=== PATIENT | female | born 1950 | race Caucasian/White ===

== ENCOUNTER 2017-10-18 14:23 | Inpatient (IN) | payer MEDICAID, OTHER ==
[2017-10-18] MEDS ORDERED: Albuterol-Ipratrop 3 mg / 0.5 (3 ml) UD IH STA ×3 (16:05→19:31)
--- NOTE | 2017-10-18 16:11 | ED PDOC ---
Arrival/HPI - General Chief Complaint: Cough, Cold, Congestion Time Seen by Provider: 10/18/17 15:55 Historian: Patient, Family - History of Present Illness Narrative History of Present Illness (Text): 10/18/17 16:07 67-year-old diabetic female presents today with a one-day history of cough and shortness of breath. Patient also complaining of a 3 month history of left arm pain which has worsened over the past few days. Patient states she has been taking daily injections for her sugars at home. Patient states her sugar was in the 200s today. Patient complaining of productive cough and wheezing. Patient denies abdominal pain. No nausea or vomiting. Patient denies neck or back pain. Patient with a history of asthma in the past. Patient complaining of chest pain worse with cough. + green sputum. Time/Duration: Other (1 day) Past Medical History - Provider Review Nursing Documentation Reviewed: Yes - Travel History Have you recently traveled outside [place] w/in the past 3 mons?: No - Tetanus Immunization Tetanus Immunization: Unknown - Cardiac Hx Cardiac Disorders: No - Pulmonary Hx Respiratory Disorders: No - Neurological Hx Neurological Disorder: No - HEENT Hx HEENT Disorder: No - Renal Hx Renal Disorder: No - Endocrine/Metabolic Hx Endocrine Disorders: Yes Hx Diabetes Mellitus Type 2: Yes - Hematological/Oncological Hx Blood Disorders: No - Integumentary Hx Dermatological Disorder: No - Musculoskeletal/Rheumatological Hx Musculoskeletal Disorders: No - Gastrointestinal Hx Gastrointestinal Disorders: No - Genitourinary/Gynecological Hx Genitourinary Disorders: No - Psychiatric Hx Psychophysiologic Disorder: No Hx Substance Use: No Family/Social History - Physician Review Nursing Documentation Reviewed: Yes Family/Social History: Unknown Family HX Smoking Status: Never Smoked Hx Alcohol Use: No Hx Substance Use: No Allergies/Home Meds Allergies/Adverse Reactions: Allergies No Known Allergies Allergy (Verified 10/18/17 15:43) Home Medications: Home Meds Medication Instructions Recorded Confirmed Insulin Aspart, Recombinant 36 unit SC DAILY 10/18/17 10/18/17 [Novolog] Insulin Glargine, Recombina 22 unit SC DAILY 10/18/17 10/18/17 [Lantus] Metformin HCl [Glucophage] 1,000 mg PO TID 10/18/17 10/18/17 Review of Systems - Review of Systems Constitutional: Fevers. absent: Fatigue Respiratory: SOB, Cough, Wheezing Cardiovascular: Chest Pain Gastrointestinal: absent: Abdominal Pain, Nausea, Vomiting, Appetite Changes Genitourinary Female: absent: Dysuria, Frequency, Hematuria Musculoskeletal: Arthralgias (left arm pain) Neurological: absent: Headache, Dizziness Psychiatric: absent: Anxiety, Depression Physical Exam Vital Signs Reviewed: Yes Vital Signs Temp Pulse Resp BP Pulse Ox 10/18/17 23:32 98.8 F 108 H 18 120/70 94 L 10/18/17 22:12 100 H 18 150/84 95 10/18/17 22:09 98.6 F 104 H 18 95 10/18/17 20:00 102 H 18 153/87 H 96 10/18/17 18:20 96 H 18 137/76 100 10/18/17 15:55 98.1 F 94 H 16 127/74 99 Temperature: Afebrile Blood Pressure: Normal Pulse: Regular Respiratory Rate: Normal Appearance: Positive for: Well-Appearing, Non-Toxic, Comfortable Pain Distress: None Mental Status: Positive for: Alert and Oriented X 3 - Systems Exam Head: Present: Atraumatic Mouth: Present: Moist Mucous Membranes Pharnyx: Present: Normal. No: ERYTHEMA, EXUDATE Nose (Internal): Present: Normal Inspection Neck: Present: Normal Range of Motion, Trachea Midline. No: Lymphadenopathy Respiratory/Chest: Present: Good Air Exchange, Wheezes (diffuse wheezing bilaterally.). No: Clear to Auscultation, Respiratory Distress, Accessory Muscle Use, Rales, Retracting, Rhonchi Cardiovascular: Present: Tachycardic. No: Murmurs Abdomen: No: Tenderness Upper Extremity: Present: NORMAL PULSES, Tenderness (left shoulder; + ttp over posterior aspect of shoulder; limited abduction; sensation and distal pulses intact; cap refill <2. ), Neurovascularly Intact, Capillary Refill < 2s. No: Normal ROM, Swelling, Erythema, Deformity Lower Extremity: Present: Normal Inspection, Normal ROM. No: Edema Neurological: Present: GCS=15, Speech Normal Skin: Present: Warm, Dry, Normal Color. No: Rashes Psychiatric: Present: Alert, Oriented x 3 Medical Decision Making ED Course and Treatment: 10/18/17 16:11 67yr old female with cough and SOb since yesterday. hx of asthma. cbc wnl cmp wnl trop wnl bnp wnl ekg; normal sinus rhythm at 97 bpm normal axis normal intervals no ST elevations cxr: FINDINGS: LUNGS: No active pulmonary disease. PLEURA: No significant pleural effusion identified, no pneumothorax apparent. CARDIOVASCULAR: Heart is enlarged. Aorta is slightly ectatic and uncoiled. OSSEOUS STRUCTURES: Mild multilevel degenerative spondylosis of the thoracic spine. VISUALIZED UPPER ABDOMEN: Normal. OTHER FINDINGS: Incidental note made of a metallic pain like density which overlies the left aspect of the base of the neck. This is probably external on some clothing artifact however Clinical correlation with direct visualization physical exam recommended IMPRESSION: Cardiomegaly. No acute infiltrates. [place] of a metallic pain like density which overlies the left aspect of the base of the neck. This is probably external on some clothing artifact however Clinical correlation with direct visualization physical exam recommended ua; wnl left shoulder xray; no fracture 10/18/17 22:43 pt given 3 duoneb treatment, solumedrol pt with continued wheezing; o2 saturation 94%. peak flow 150. magnesium added. rapid flu; negative case discussed with dr. hester; accepts observational status admission for cough/ asthma; ct of chest r/o PE: FINDINGS: Limitations: Suboptimal timing of bolus. Motion artifact - mild to moderate. Pulmonary arteries: Few apparent filling defects within subsegmental branches. No saddle embolus. Aorta: Mild atherosclerotic disease of aorta. No aneurysm. Lungs: Mild atelectasis/scarring. No consolidation. Few nodules, up to 0.4 cm. Pleural space: No significant effusion. No pneumothorax. Heart: Borderline cardiomegaly. No significant pericardial effusion. Mediastinum: Probable small hiatal hernia. Bones/joints: Degenerative changes of spine. No acute fracture. Soft tissues: Unremarkable. Lymph nodes: No pathologically enlarged lymph nodes. Liver: Fatty infiltration. Small calcification. Spleen: Small calcification. IMPRESSION: 1. Apparent pulmonary emboli. 2. Pulmonary nodules. For low-risk patients, no follow-up is necessary. For high -risk patients (smoking history or other known risk factors) an optional CT at 12 months could be performed. 3. Incidental/non-acute findings are described above. Dr. hester and resident aware of CT findings; heparin started. impression; PE, cough, asthma exacerbation admit to tele. - Lab Interpretations Lab Results: 10/18/17 17:00 10/18/17 17:00 Lab Results 10/18/17 21:45: Influenza Typ A,B (EIA) Negative for flu a/b 10/18/17 17:25: Urine Color Yellow, Urine Appearance Clear, Urine pH 6.0, Ur Specific [place] 1.020, Urine Protein Trace H, Urine Glucose (UA) >=1000, Urine Ketones 15 H, Urine Blood Negative, Urine Nitrate Negative, Urine Bilirubin Negative, Urine Urobilinogen 0.2, Ur Leukocyte Esterase Negative, Urine RBC Negative, Urine WBC Negative, Ur Epithelial Cells 0 - 2 10/18/17 17:00: WBC 10.1, RBC 4.56, Hgb 13.8, Hct 40.5, MCV 88.8, MCH 30.3, MCHC 34.1, RDW 12.4, Plt Count 254, MPV 9.1, Gran % 52.9, Lymph % (Auto) 36.8 H , [place] % (Auto) 7.4 H, Eos % (Auto) 2.7, Baso % (Auto) 0.2, Gran # 5.37, Lymph # (Auto) 3.7 H, [place] # (Auto) 0.8 H, Eos # (Auto) 0.3, Baso # (Auto) 0.02 10/18/17 17:00: Sodium 141, Potassium 4.0, Chloride 100, Carbon Dioxide 25, Anion Gap 20, BUN 17, Creatinine 0.7, Est GFR ( Amer) > 60, Est GFR (Non- Af Amer) > 60, Random Glucose 229 H, Calcium 9.7, Total Bilirubin 0.2, AST 35, ALT 44, Alkaline Phosphatase 70, Lactate Dehydrogenase 248 L, Total Creatine Kinase 64, Troponin I < 0.01, NT-Pro-B Natriuret Pep < 11.1, Total Protein 7.8, Albumin 4.5, Globulin 3.3, Albumin/Globulin Ratio 1.4, Lipase 85 - RAD Interpretation Radiology Orders: 10/18/17 15:55 CHEST PORTABLE [RAD] Stat 10/18/17 16:11 SHOULDER LEFT [RAD] Stat 10/18/17 21:35 ANGIO CHEST PE PROTOCOL [CT] Stat - Medication Orders Current Medication Orders: Albuterol/Ipratropium (Duoneb 3 Mg/0.5 Mg (3 Ml) Ud) 3 ml IH Q2H PRN PRN Reason: Shortness of Breath Albuterol/Ipratropium (Duoneb 3 Mg/0.5 Mg (3 Ml) Ud) 3 ml IH [id number] [facility] Cyclobenzaprine HCl (Flexeril) 5 mg PO Q24H PRN PRN Reason: pain Azithromycin 250 mg/ Sodium (Chloride) 250 mls @ 167 mls/hr IVPB DAILY [facility] PRN Reason: Protocol Insulin Human Regular (Humulin R Med) 0 units SC ACHS RADHA PRN Reason: Protocol Methylprednisolone (Solu-Medrol) 20 mg IVP Q12 [facility] Last Admin: 10/18/17 23:55 Dose: 20 mg Pantoprazole Sodium (Protonix Ec Tab) 40 mg PO 0600 RADHA Discontinued Medications Albuterol/Ipratropium (Duoneb 3 Mg/0.5 Mg (3 Ml) Ud) 3 ml IH STAT STA Stop: 10/18/17 16:06 Last Admin: 10/18/17 16:16 Dose: 3 ml Albuterol/Ipratropium (Duoneb 3 Mg/0.5 Mg (3 Ml) Ud) 3 ml IH STAT STA Stop: 10/18/17 17:41 Last Admin: 10/18/17 18:19 Dose: 3 ml Albuterol/Ipratropium (Duoneb 3 Mg/0.5 Mg (3 Ml) Ud) 3 ml IH STAT STA Stop: 10/18/17 19:32 Last Admin: 10/18/17 20:21 Dose: 3 ml Magnesium Sulfate 2 gm/ Sodium (Chloride) 104 mls @ 102 mls/hr IVPB ONCE ONE Stop: 10/18/17 21:59 Last Admin: 10/18/17 22:25 Dose: 102 mls/hr eMAR Start Stop Document 10/18/17 22:25 MS (Rec: 10/18/17 22:31 MS [id number]) Intravenous Solution Start Date 10/18/17 Start Time 22:15 End Date 10/18/17 End time 23:15 Total Infusion Time 60 Methylprednisolone (Solu-Medrol) 125 mg IVP STAT STA Stop: 10/18/17 17:42 Last Admin: 10/18/17 18:19 Dose: 125 mg IVP Administration Document 10/18/17 18:19 MS (Rec: 10/18/17 18:19 MS [id number]) Charges for Administration # of IVP Administrations 1 Disposition/Present on Arrival - Present on Arrival Any Indicators Present on Arrival: No History of DVT/PE: No History of Uncontrolled Diabetes: No Urinary Catheter: No History of Decub. Ulcer: No History Surgical Site Infection Following: None - Disposition Have Diagnosis and Disposition been Completed?: Yes Diagnosis: Asthma exacerbation Disposition: HOSPITALIZED Disposition Time: 21:49 Patient Plan: Observation Patient Problems: Current Active Problems Problem Status Onset Asthma exacerbation Acute Condition: FAIR
--- NOTE | 2017-10-18 16:22 | RAD ---
HISTORY: Chest pain. COMPARISON: No prior study available FINDINGS: LUNGS: No active pulmonary disease. PLEURA: No significant pleural effusion identified, no pneumothorax apparent. CARDIOVASCULAR: Heart is enlarged. Aorta is slightly ectatic and uncoiled. OSSEOUS STRUCTURES: Mild multilevel degenerative spondylosis of the thoracic spine. VISUALIZED UPPER ABDOMEN: Normal. OTHER FINDINGS: Incidental note made of a metallic pain like density which overlies the left aspect of the base of the neck. This is probably external on some clothing artifact however Clinical correlation with direct visualization physical exam recommended IMPRESSION: Cardiomegaly. No acute infiltrates. [place] of a metallic pain like density which overlies the left aspect of the base of the neck. This is probably external on some clothing artifact however Clinical correlation with direct visualization physical exam recommended
[2017-10-18 17:19] LABS: BASO # 0.02 K/mm3 (0.0-2.0); BASO % 0.2 % (0.0-3.0); EOS # 0.3 (0.0-0.7); EOS % 2.7 % (1.5-5.0); GRAN # 5.37 (1.4-6.5); GRAN % 52.9 % (50.0-68.0); HEMOGLOBIN 13.8 g/dL (12.0-16.0); LYMPH # 3.7 (1.2-3.4); LYMPH % 36.8 % (22.0-35.0); MEAN CELL VOLUME 88.8 fl (80.0-105.0); MEAN CORPUSCULAR HEMOGLOBIN 30.3 pg (25.0-35.0); MEAN CORPUSCULAR HGB CONC 34.1 g/dl (31.0-37.0); MEAN PLATELET VOLUME 9.1 fl (7.0-11.0); MONO # 0.8 (0.1-0.6); MONO % 7.4 % (1.0-6.0); RBC 4.56 10^6/uL (3.5-6.1); RED CELL DISTRIBUTION WIDTH 12.4 % (11.5-14.5); WHITE BLOOD COUNT 10.1 10^3/ul (4.5-11.0)
[2017-10-18 17:29] LABS: BLOOD UREA NITROGEN 17 mg/dL (7-21); CALCIUM 9.7 mg/dL (8.4-10.5); GFR AFRICAN-AMERICAN > 60; GFR NON-AFRICAN AMERICAN > 60
[2017-10-18 17:30] LABS: ALB/GLOB RATIO 1.4 (1.1-1.8); ALBUMIN 4.5 g/dL (3.0-4.8); ALT/SGPT 44 U/L (7-56); AST/SGOT 35 U/L (14-36); LIPASE 85 U/L (23-300)
[2017-10-18 17:41] LABS: TROPONIN I < 0.01 ng/mL
[2017-10-18 17:45] LABS: B-TYPE NATRIURETIC PEPTIDE < 11.1 pg/mL (0-450)
[2017-10-18 18:39] LABS: URINE APPEARANCE CLEAR (CLEAR); URINE BILIRUBIN NEGATIVE (NEGATIVE); URINE BLOOD NEGATIVE (NEGATIVE); URINE COLOR YELLOW (YELLOW); URINE GLUCOSE (UA) >=1000 mg/dL (NEGATIVE); URINE LEUKOCYTE ESTERASE NEGATIVE Leu/uL (NEGATIVE); URINE PROTEIN TRACE mg/dL (<30 mg/dL); URINE UROBILINOGEN 0.2 E.U./dL (<1 E.U./dL)
[2017-10-18 18:42] LABS: URINE EPITHELIAL CELLS 0 - 2 /hpf (0-5); URINE RBC NEGATIVE /hpf (0-2); URINE WBC NEGATIVE /hpf (0-6)
[2017-10-18] MEDS ORDERED: Magnesium Sulfate 2 GM in Sodium Chloride 0.9% 100 ML IVPB ONE (20:58)
[2017-10-18] MEDS ORDERED: Albuterol-Ipratrop 3 mg / 0.5 (3 ml) UD IH PRN (21:46)
--- NOTE | 2017-10-18 22:14 | CP.PCM.HP ---
History of Present Illness - History of Present Illness History of Present Illness: Medicine H&P: Dr. Benavidez Chief Complaint: Shortness of breath/Chest Pain HPI: 67 year old korean-speaking female with past medical history of asthma and diabetes presents with one week duration of shortness of breath with associated productive cough of green sputum. Patient also states that she has severe left arm pain with limited range of motion. Patient denies fevers and chills as well as sick contacts at home. Patient does admit to some chest pain. 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 Review of Systems: 12 point ROS obtained and negative except as per HPI Surgical History: Patient denies Medical History: Asthma and Insulin-dependent Diabetes Allergies: NKDA Social History: Denies smoking, alcohol, illicits Home Meds: Reviewed Family History: Diabetes PMD: None Present on Admission - Present on Admission Any Indicators Present on Admission: No Past Patient History - Tetanus Immunizations Tetanus Immunization: Unknown - Past Social History Smoking Status: Never Smoked - CARDIAC Hx Cardiac Disorders: No - PULMONARY Hx Respiratory Disorders: No - NEUROLOGICAL Hx Neurological Disorder: No - HEENT Hx HEENT Problems: No - RENAL Hx Chronic Kidney Disease: No - ENDOCRINE/METABOLIC Hx Endocrine Disorders: Yes Hx Diabetes Mellitus Type 2: Yes - HEMATOLOGICAL/ONCOLOGICAL Hx Blood Disorders: No - INTEGUMENTARY Hx Dermatological Problems: No - MUSCULOSKELETAL/RHEUMATOLOGICAL Hx Musculoskeletal Disorders: No - GASTROINTESTINAL Hx Gastrointestinal Disorders: No - GENITOURINARY/GYNECOLOGICAL Hx Genitourinary Disorders: No - PSYCHIATRIC Hx Psychophysiologic Disorder: No Hx Substance Use: No - SURGICAL HISTORY Hx Surgeries: No Meds Allergies/Adverse Reactions: Allergies Allergy/AdvReac Type Severity Reaction Status Date / Time No Known Allergies Allergy Verified 10/18/17 15:43 Physical Exam - Constitutional Appears: Well - Head Exam Head Exam: ATRAUMATIC, NORMAL INSPECTION, NORMOCEPHALIC - Eye Exam Eye Exam: EOMI, Normal appearance, PERRL Pupil Exam: NORMAL ACCOMODATION, PERRL - ENT Exam ENT Exam: Mucous Membranes Moist, Normal Exam - Neck Exam Neck exam: Positive for: Normal Inspection - Respiratory Exam Respiratory Exam: Clear to Auscultation Bilateral, NORMAL BREATHING PATTERN - Cardiovascular Exam Cardiovascular Exam: REGULAR RHYTHM - GI/Abdominal Exam GI & Abdominal Exam: Normal Bowel Sounds, Soft. absent: Tenderness - Extremities Exam Extremities exam: Positive for: normal inspection - Back Exam Back exam: NORMAL INSPECTION - Neurological Exam Neurological exam: Alert, CN II-XII Intact, Normal Gait, Oriented x3, Reflexes Normal - Psychiatric Exam Psychiatric exam: Normal Affect, Normal Mood - Skin Skin Exam: Dry, Intact, Normal Color, Warm Results - Vital Signs Recent Vital Signs: Last Vital Signs Temp 98.1 F 10/18/17 15:55 Pulse 100 H 10/18/17 22:12 Resp 18 10/18/17 22:12 BP 150/84 10/18/17 22:12 Pulse Ox 95 10/18/17 22:12 - Labs Result Diagrams: 10/18/17 17:00 10/18/17 17:00 Labs: Laboratory Results - last 24 hr 10/18/17 10/18/17 10/18/17 17:00 17:00 17:25 WBC 10.1 RBC 4.56 Hgb 13.8 Hct 40.5 MCV 88.8 MCH 30.3 MCHC 34.1 RDW 12.4 Plt Count 254 MPV 9.1 Gran % 52.9 Lymph % (Auto) 36.8 H [place] % (Auto) 7.4 H Eos % (Auto) 2.7 Baso % (Auto) 0.2 Gran # 5.37 Lymph # (Auto) 3.7 H [place] # (Auto) 0.8 H Eos # (Auto) 0.3 Baso # (Auto) 0.02 Sodium 141 Potassium 4.0 Chloride 100 Carbon Dioxide 25 Anion Gap 20 BUN 17 Creatinine 0.7 Est GFR ( Amer) > 60 Est GFR (Non-Af Amer) > 60 Random Glucose 229 H Calcium 9.7 Total Bilirubin 0.2 AST 35 ALT 44 Alkaline Phosphatase 70 Lactate Dehydrogenase 248 L Total Creatine Kinase 64 Troponin I < 0.01 NT-Pro-B Natriuret Pep < 11.1 Total Protein 7.8 Albumin 4.5 Globulin 3.3 Albumin/Globulin Ratio 1.4 Lipase 85 Urine Color Yellow Urine Appearance Clear Urine pH 6.0 Ur Specific [place] 1.020 Urine Protein Trace H Urine Glucose (UA) >=1000 Urine Ketones 15 H Urine Blood Negative Urine Nitrate Negative Urine Bilirubin Negative Urine Urobilinogen 0.2 Ur Leukocyte Esterase Negative Urine RBC Negative Urine WBC Negative Ur Epithelial Cells 0 - 2 Assessment & Plan - Assessment and Plan (Free Text) Assessment: 67 year old female with pertinent medical history of asthma presents with shortness of breath and cough for a week. Patient states that she no longer takes any medications for her asthma. Chest XR in the ED is negative. My physical exam is benign, but patient received 3 rounds of duonebs in the ER. However, patient is tachycardic, dyspneic, complains of chest pain, and is saturating only 94% on RA without having a history of COPD. Patient also complains of chest pain and left shoulder pain. Shoulder XR negative; Trope X 1 negative, EKG X 1 negative, BNP wnl. Plan Chest pain, most likely 2/2 Cough - Tropes, EKG series - Toradol for pain Shortness of breath, likely 2/2 Asthma Exacerbation - Rule Out PE - Duonebs RADHA and PRN, Solumedrol - CTA PE Protocol - Azithro Left Shoulder Pain - Toradol stat dose - Flexeril PRN History Diabetes - RISS Medium - Accuchecks ACHS GI/DVT Prophylaxis - Protonix/Lovenox
[2017-10-18] MEDS ORDERED: Iohexol 350 MG/100 ML VIAL ONE (22:23)
--- NOTE | 2017-10-18 23:42 | CT ---
EXAM: CT Angiography Chest With Intravenous Contrast CLINICAL HISTORY: 67 years old, female; Signs and symptoms; Shortness of breath and other: Tachycardia; Additional info: Cp, SOB, tachycardia, low sat TECHNIQUE: Axial computed tomographic angiography images of the chest with intravenous contrast using pulmonary embolism protocol. All CT scans at this facility use one or more dose reduction techniques, viz.: automated exposure control; ma/kV adjustment per patient size (including targeted exams where dose is matched to indication; i.e. head); or iterative reconstruction technique. MIP reconstructed images were created and reviewed. Coronal and sagittal reformatted images were created and reviewed. CONTRAST: 95 mL of OMNI 350 administered intravenously. COMPARISON: DX - CHEST PORTABLE 2017-10-18 15:59 FINDINGS: Limitations: Suboptimal timing of bolus. Motion artifact - mild to moderate. Pulmonary arteries: Few apparent filling defects within subsegmental branches. No saddle embolus. Aorta: Mild atherosclerotic disease of aorta. No aneurysm. Lungs: Mild atelectasis/scarring. No consolidation. Few nodules, up to 0.4 cm. Pleural space: No significant effusion. No pneumothorax. Heart: Borderline cardiomegaly. No significant pericardial effusion. Mediastinum: Probable small hiatal hernia. Bones/joints: Degenerative changes of spine. No acute fracture. Soft tissues: Unremarkable. Lymph nodes: No pathologically enlarged lymph nodes. Liver: Fatty infiltration. Small calcification. Spleen: Small calcification. IMPRESSION: 1. Apparent pulmonary emboli. 2. Pulmonary nodules. For low-risk patients, no follow-up is necessary. For high-risk patients (smoking history or other known risk factors) an optional CT at 12 months could be performed. 3. Incidental/non-acute findings are described above.
[2017-10-18] MEDS ORDERED: Heparin25000 units/250ml 1/2NS 25,000 UNITS/250 ML BAG IV PRN (23:54)
[2017-10-18] MEDS: MethylPREDNISolone 40 mg Vial IVP SCH (23:55)
[2017-10-19] MEDS ORDERED: Heparin 25,000units in 1/2NS /250 ML BAG IV PRN (00:19)
[2017-10-19] MEDS: Insulin Reg-MEDIUM-Coverage SC SCH ×5 (01:17→21:35)
[2017-10-19] MEDS: Albuterol-Ipratrop 3 mg / 0.5 (3 ml) UD IH SCH ×6 (01:19→19:41)
[2017-10-19 02:54] LABS: INR 1.09 (0.93-1.08); PARTIAL THROMBOPLASTIN TIME 71.6 Seconds (25.1-36.5); PROTHROMBIN TIME 12.4 SECONDS (9.4-12.5)
[2017-10-19 06:28] LABS: BASO # 0.01 K/mm3 (0.0-2.0); BASO % 0.1 % (0.0-3.0); GRAN # 9.66 (1.4-6.5); GRAN % 84.3 % (50.0-68.0); HEMOGLOBIN 13.3 g/dL (12.0-16.0); LYMPH # 1.7 (1.2-3.4); LYMPH % 14.7 % (22.0-35.0); MEAN CELL VOLUME 89.9 fl (80.0-105.0); MEAN CORPUSCULAR HEMOGLOBIN 29.9 pg (25.0-35.0); MEAN CORPUSCULAR HGB CONC 33.3 g/dl (31.0-37.0); MEAN PLATELET VOLUME 9.4 fl (7.0-11.0); MONO # 0.1 (0.1-0.6); MONO % 0.9 % (1.0-6.0); RBC 4.45 10^6/uL (3.5-6.1); RED CELL DISTRIBUTION WIDTH 12.7 % (11.5-14.5); WHITE BLOOD COUNT 11.5 10^3/ul (4.5-11.0)
[2017-10-19] MEDS: Pantoprazole 40 mg EC Tab PO SCH (06:55)
[2017-10-19 06:57] LABS: TROPONIN I 0.02 ng/mL
[2017-10-19 07:18] LABS: ALB/GLOB RATIO 1.3 (1.1-1.8); ALBUMIN 4.6 g/dL (3.0-4.8); ALT/SGPT 44 U/L (7-56); AST/SGOT 42 U/L (14-36); BLOOD UREA NITROGEN 21 mg/dL (7-21); CALCIUM 9.8 mg/dL (8.4-10.5); GFR AFRICAN-AMERICAN > 60; GFR NON-AFRICAN AMERICAN > 60
--- NOTE | 2017-10-19 08:07 | CARD ---
APPROVED REPORT EKG Measurement Heart [id number] HI [id number] <Conclusion> Normal sinus rhythm Normal ECG
--- NOTE | 2017-10-19 08:14 | RAD ---
PROCEDURE: Radiographs of the Left Shoulder HISTORY: Shoulder and left upper extremity COMPARISON: No prior. FINDINGS: BONES: No acute fracture. JOINTS: Normal. Glenohumeral and acromioclavicular joints preserved. No osteoarthritis. SOFT TISSUES: Normal. OTHER FINDINGS: None. IMPRESSION: No acute findings related to/accounting for the clinical presentation.
--- NOTE | 2017-10-19 09:04 | CARD ---
APPROVED REPORT EKG Measurement Heart [id number] [id number] <Conclusion> Sinus tachycardia Otherwise normal ECG
[2017-10-19] MEDS ORDERED: Enoxaparin 40 mg Syringe SC SCH (10:00)
[2017-10-19] MEDS: Azithromycin 250 MG in Sodium Chloride 0.9% 250 ML IVPB SCH (10:21)
[2017-10-19] MEDS: MethylPREDNISolone 40 mg Vial IVP SCH ×2 (10:21→21:36)
--- NOTE | 2017-10-19 11:22 | CP.PCM.PN ---
<Manolo Heller - Last Filed: 10/19/17 12:10> Subjective - Date & Time of Evaluation Date of Evaluation: 10/19/17 Time of Evaluation: 07:50 - Subjective Subjective: IM Hospitalist Progress Note Patient seen and examined at bedside. No acute events reported since admission overnight. As per patient (Bulgarian russian language instructor used), improved shortness of breath and chest pain, arm pain controlled on current regimen. Denies any tobacco use, any prolonged stasis (bed-bound, long car or air travel) , hx of blood clots, personal or family hx of clotting disorder, or hormonal medication use (i.e. OCPs). Denies nausea, emesis, hemoptysis. Cough improved. Finishing breathing tx at time of exam. Objective - Vital Signs/Intake and Output Vital Signs (last 24 hours): Temp Pulse Resp BP Pulse Ox 97.9 F 105 H 18 125/69 94 L 10/19/17 06:00 10/19/17 06:00 10/19/17 06:00 10/19/17 06:00 10/19/17 06:00 Intake and Output: 10/19/17 10/19/17 06:59 18:59 Intake Total 120 20 Balance 120 20 - Medications Medications: Current Medications Albuterol/Ipratropium (Duoneb 3 Mg/0.5 Mg (3 Ml) Ud) 3 ml IH Q2H PRN PRN Reason: Shortness of Breath Albuterol/Ipratropium (Duoneb 3 Mg/0.5 Mg (3 Ml) Ud) 3 ml IH [id number] [facility] Last Admin: 10/19/17 08:00 Dose: 3 ml Cyclobenzaprine HCl (Flexeril) 5 mg PO Q24H PRN PRN Reason: Pain, severe (8-10) Azithromycin 250 mg/ Sodium (Chloride) 250 mls @ 167 mls/hr IVPB DAILY RADHA PRN Reason: Protocol Last Admin: 10/19/17 10:21 Dose: 167 mls/hr Heparin Sodium/Sodium Chloride (Heparin 53706 Units/250ml 1/2 Normal Saline) 25 ,000 units in 250 mls @ 15.35 mls/hr IV .[id number] PRN; Protocol; 18 UNITS/KG/HR PRN Reason: ADJUST RATE PER PROTOCOL Last Titration: 10/19/17 10:56 Dose: 16 units/kg/hr, 13.644 mls/hr Insulin Detemir (Levemir) 15 unit SC [facility] Insulin Human Regular (Humulin R Med) 0 units SC [facility] PRN Reason: Protocol Last Admin: 10/19/17 08:25 Dose: 10 units Methylprednisolone (Solu-Medrol) 20 mg IVP Q12 [facility] Last Admin: 10/19/17 10:21 Dose: 20 mg Pantoprazole Sodium (Protonix Ec Tab) 40 mg PO 0600 [facility] Last Admin: 10/19/17 06:55 Dose: 40 mg - Labs Labs: 10/19/17 05:30 10/19/17 05:30 PT 12.4 SECONDS (9.4-12.5) 10/19/17 02:30 INR 1.09 (0.93-1.08) H 10/19/17 02:30 APTT 81.0 Seconds (25.1-36.5) H 10/19/17 09:58 - Constitutional Appears: Non-toxic, No Acute Distress - Head Exam Head Exam: ATRAUMATIC, NORMAL INSPECTION, NORMOCEPHALIC - Eye Exam Eye Exam: EOMI, Normal appearance. absent: Conjunctival injection, Scleral icterus Pupil Exam: absent: Irregular, Unequal - ENT Exam ENT Exam: Mucous Membranes Moist - Neck Exam Neck Exam: Full ROM, Normal Inspection - Respiratory Exam Respiratory Exam: Clear to Ausculation Bilateral, Rhonchi (faint bibasilar ronchi, otherwise CTAB), NORMAL BREATHING PATTERN. absent: Accessory Muscle Use , Chest Wall Tenderness, Decreased Breath Sounds, Prolonged Expiratory Phase, Rales, Wheezes, Respiratory Distress, Stridor - Cardiovascular Exam Cardiovascular Exam: REGULAR RHYTHM, RRR, +S1, +S2. absent: Bradycardia, Tachycardia, Irregular Rhythm, JVD, +S4 - GI/Abdominal Exam GI & Abdominal Exam: Soft, Normal Bowel Sounds. absent: Distended, Firm, Rigid , Tenderness, Diminished Bowel Sounds, Hyperactive Bowel Sounds, Hypoactive Bowel Sounds - Extremities Exam Extremities Exam: Full ROM, Normal Capillary Refill, Normal Inspection. absent : Calf Tenderness, Joint Swelling, Pedal Edema, Tenderness - Neurological Exam Additional comments: awake and alert, moving all extremities spontaneously, following all commands appropriately motor grossly intact and equal bilaterally - Psychiatric Exam Psychiatric exam: Normal Affect, Normal Mood - Skin Skin Exam: Dry, Intact, Normal Color, Warm Assessment and Plan - Assessment and Plan (Free Text) Assessment: This is a 67 yo F with PMH of Asthma (now only on rescue inhaler) and DM-II on insulin who presented to [facility] with 1 week of cough productive of green sputum, worsening shortness of breath, and recently begun chest pain and left arm pain. She was found to have subsegmental PEs, and is now on a heparin drip, pending transition to long-term anticoagulation. Plan: 1) Subsegmental PE -subsegmental PE on CTA, no consolidations appreciated -Echo ordered to assess heart function, LE duplex to rule out DVT -appears unprovoked, pt denies hx of blood clots, personal/fam hx of clotting disorders, non-smoker, no prolonged stasis, not on hormonal meds -already was started on heparin drip, but Factor V Leiden mutation/Prothrombin gene mutation/Antiphospholipid antibody ordered -on heparin drip, CM confirmed eligible for Eliquis, start on 10mg BID x 7 days , then switch to 5mg PO BID, can stop heparin drip after starting Eliquis -Will need minimum 2-3 months anticoagulation, will need to follow up with Hematology on discharge 2) Productive cough with green sputum -CAP vs asthma exacerbation vs 2/2 PE -no wheezing appreciated on exam today -continue Duonebs q4 and q2 prn, solumedrol 20 q12; will transition to PO steroid taper tmr and decrease duonebs to q6 radha if pt tolerates well today -continue Zithromax for empiric CAP/atypical PNA coverage -pt reports only on rescue inhaler at home, will likely go home on steroid taper but otherwise unlikely to need additional asthma medications 3) DM II -holding home metformin due to contrast scan -given elevated blood glucose overnight and this AM (likely 2/2 steroid use), restarted on basal insulin (Levemir 17 units nightly), if BG remains elevated can increase sliding scale to HIGH-scale Dispo: Telemetry, switched to inpatient, converting from Heparin drip to Eliquis , possible d/c tomorrow or Sunday (10/21) FEN: HHD-Consistent carb Access: Peripheral IV Consults: N/A Ppx: Protonix for GI, Heparin drip/Eliquis covers for DVT Patient seen, reviewed, and discussed with attending, Dr. Diggs. <Luiza Diggs - Last Filed: 10/19/17 16:09> Objective - Vital Signs/Intake and Output Vital Signs (last 24 hours): Temp Pulse Resp BP Pulse Ox 98.4 F 106 H 19 147/77 94 L 10/19/17 14:12 10/19/17 14:12 10/19/17 14:12 10/19/17 14:12 10/19/17 11:49 - Medications Medications: Current Medications Albuterol/Ipratropium (Duoneb 3 Mg/0.5 Mg (3 Ml) Ud) 3 ml IH Q2H PRN PRN Reason: Shortness of Breath Albuterol/Ipratropium (Duoneb 3 Mg/0.5 Mg (3 Ml) Ud) 3 ml IH [id number] [facility] Last Admin: 10/19/17 11:48 Dose: 3 ml Apixaban (Eliquis) 10 mg PO BID RADHA PRN Reason: Protocol Stop: 10/25/17 18:01 Last Admin: 10/19/17 12:00 Dose: 10 mg Apixaban (Eliquis) 5 mg PO BID RADHA PRN Reason: Protocol Cyclobenzaprine HCl (Flexeril) 5 mg PO Q24H PRN PRN Reason: Pain, severe (8-10) Azithromycin 250 mg/ Sodium (Chloride) 250 mls @ 167 mls/hr IVPB DAILY RADHA PRN Reason: Protocol Last Admin: 10/19/17 10:21 Dose: 167 mls/hr Insulin Detemir (Levemir) 15 unit SC HS [facility] Insulin Human Regular (Humulin R Med) 0 units SC ACHS RADHA PRN Reason: Protocol Last Admin: 10/19/17 11:57 Dose: 8 units Methylprednisolone (Solu-Medrol) 20 mg IVP Q12 [facility] Last Admin: 10/19/17 10:21 Dose: 20 mg Pantoprazole Sodium (Protonix Ec Tab) 40 mg PO 0600 [facility] Last Admin: 10/19/17 06:55 Dose: 40 mg - Labs Labs: PT 12.4 SECONDS (9.4-12.5) 10/19/17 02:30 INR 1.09 (0.93-1.08) H 10/19/17 02:30 APTT 81.0 Seconds (25.1-36.5) H 10/19/17 09:58 Attending/Attestation - Attestation I have personally seen and examined this patient.: Yes I have fully participated in the care of the patient.: Yes I have reviewed all pertinent clinical information, including history, physical exam and plan: Yes Notes (Text): I have seen and examined the patient at bedside. Agree with the above note with the following additions/ exceptions: Briefly this is 67 year old female with history of asthma and DM-2 who was admitted for evaluation of cough with sputum production and found to have first episode of subsegmental unprovoked PE. She is already on heparin. Eliquis has been approved by the insurance as per pharmacy. Patient denies any complaint. Hypercoagulable workup is pending. Follow up with mechanical systems engineer as an outpatient. LE duplex and echo still pending. Continue zithromax. Possible discharge this weekend. Upon discharge patient will follow up in [facility] clinic. Dr Luiza Diggs
--- NOTE | 2017-10-19 15:55 | US ---
HISTORY: Leg pain and swelling. Evaluate for DVT PHYSICIAN(S): Gilberto Richardson MD. TECHNIQUE: Duplex sonography and color-flow Doppler with graded compression were used to evaluate the deep venous systems of both lower extremities. FINDINGS: The visualized deep venous systems of both lower extremities are sonographically normal and compressible. Normal wave forms and augmentation are seen. There is no sonographic evidence for deep venous thrombosis in the visualized segments of both lower extremities. IMPRESSION: No sonographic evidence for deep venous thrombosis in the visualized segments of both lower extremities.
[2017-10-19] MEDS ORDERED: Insulin Detemir 100 units/ml Vial (Levemir) SC SCH (22:00)
[2017-10-20] MEDS: Albuterol-Ipratrop 3 mg / 0.5 (3 ml) UD IH SCH ×5 (01:05→15:50)
[2017-10-20] MEDS: Pantoprazole 40 mg EC Tab PO SCH (06:24)
[2017-10-20 07:10] LABS: BASO # 0.01 K/mm3 (0.0-2.0); BASO % 0.1 % (0.0-3.0); GRAN # 11.35 (1.4-6.5); GRAN % 82.4 % (50.0-68.0); HEMOGLOBIN 13.6 g/dL (12.0-16.0); LYMPH # 1.9 (1.2-3.4); LYMPH % 14.1 % (22.0-35.0); MEAN CELL VOLUME 90.5 fl (80.0-105.0); MEAN CORPUSCULAR HEMOGLOBIN 30.1 pg (25.0-35.0); MEAN CORPUSCULAR HGB CONC 33.3 g/dl (31.0-37.0); MEAN PLATELET VOLUME 9.4 fl (7.0-11.0); MONO # 0.5 (0.1-0.6); MONO % 3.4 % (1.0-6.0); RBC 4.52 10^6/uL (3.5-6.1); RED CELL DISTRIBUTION WIDTH 12.7 % (11.5-14.5); WHITE BLOOD COUNT 13.8 10^3/ul (4.5-11.0)
[2017-10-20] MEDS: Insulin Reg-MEDIUM-Coverage SC SCH (07:58)
[2017-10-20 08:01] LABS: ALB/GLOB RATIO 1.3 (1.1-1.8); ALBUMIN 4.5 g/dL (3.0-4.8); ALT/SGPT 49 U/L (7-56); AST/SGOT 38 U/L (14-36); BLOOD UREA NITROGEN 24 mg/dL (7-21); CALCIUM 9.8 mg/dL (8.4-10.5); GFR AFRICAN-AMERICAN > 60; GFR NON-AFRICAN AMERICAN > 60
[2017-10-20] MEDS ORDERED: Insulin Detemir 100 units/ml Vial (Levemir) SC ONE (08:51)
[2017-10-20] MEDS: Azithromycin 250 MG in Sodium Chloride 0.9% 250 ML IVPB SCH (10:31)
--- NOTE | 2017-10-20 11:57 | CP.PCM.DIS ---
<Manolo Heller - Last Filed: 10/20/17 17:43> Provider - Provider Date of Admission: 10/19/17 11:40 Attending physician: Luiza Diggs MD Primary care physician: None Consults: N/A Time Spent in preparation of Discharge (in minutes): 35 Diagnosis - Discharge Diagnosis (1) Pulmonary embolism Status: Acute Priority: High (2) Pneumonia Status: Suspected Priority: Medium (3) Diabetes mellitus type 2, insulin dependent Status: Chronic Priority: High (4) Asthma exacerbation Status: Suspected Priority: Medium Hospital Course - Lab Results Lab Results: Most Recent Lab Values WBC 13.8 10^3/ul (4.5-11.0) H 10/20/17 06:00 RBC 4.52 10^6/uL (3.5-6.1) 10/20/17 06:00 Hgb 13.6 g/dL (12.0-16.0) 10/20/17 06:00 Hct 40.9 % (36.0-48.0) 10/20/17 06:00 MCV 90.5 fl (80.0-105.0) 10/20/17 06:00 MCH 30.1 pg (25.0-35.0) 10/20/17 06:00 MCHC 33.3 g/dl (31.0-37.0) 10/20/17 06:00 RDW 12.7 % (11.5-14.5) 10/20/17 06:00 Plt Count 301 10^3/uL (120.0-450.0) 10/20/17 06:00 MPV 9.4 fl (7.0-11.0) 10/20/17 06:00 Gran % 82.4 % (50.0-68.0) H 10/20/17 06:00 Lymph % (Auto) 14.1 % (22.0-35.0) L 10/20/17 06:00 Richardson % (Auto) 3.4 % (1.0-6.0) 10/20/17 06:00 Eos % (Auto) 0.0 % (1.5-5.0) L 10/20/17 06:00 Baso % (Auto) 0.1 % (0.0-3.0) 10/20/17 06:00 Gran # 11.35 (1.4-6.5) H 10/20/17 06:00 Lymph # (Auto) 1.9 (1.2-3.4) 10/20/17 06:00 Richardson # (Auto) 0.5 (0.1-0.6) 10/20/17 06:00 Eos # (Auto) 0.0 (0.0-0.7) 10/20/17 06:00 Baso # (Auto) 0.01 K/mm3 (0.0-2.0) 10/20/17 06:00 PT 12.4 SECONDS (9.4-12.5) 10/19/17 02:30 INR 1.09 (0.93-1.08) H 10/19/17 02:30 APTT 81.0 Seconds (25.1-36.5) H 10/19/17 09:58 Sodium 141 mmol/L (132-148) 10/20/17 06:00 Potassium 4.5 mmol/L (3.6-5.0) 10/20/17 06:00 Chloride 101 mmol/L (98-107) 10/20/17 06:00 Carbon Dioxide 24 mmol/L (21-33) 10/20/17 06:00 Anion Gap 21 (10-20) H 10/20/17 06:00 BUN 24 mg/dL (7-21) H 10/20/17 06:00 Creatinine 0.7 mg/dl (0.7-1.2) 10/20/17 06:00 Est GFR ( Amer) > 60 10/20/17 06:00 Est GFR (Non-Af Amer) > 60 10/20/17 06:00 POC Glucose (mg/dL) 338 mg/dL (65-110) H 10/20/17 07:25 Random Glucose 384 mg/dL (70-110) H* 10/20/17 06:00 Calcium 9.8 mg/dL (8.4-10.5) 10/20/17 06:00 Phosphorus 6.4 mg/dL (2.5-4.5) H 10/20/17 06:00 Magnesium 2.3 mg/dL (1.7-2.2) H 10/20/17 06:00 Total Bilirubin 0.4 mg/dL (0.2-1.3) 10/20/17 06:00 AST 38 U/L (14-36) H 10/20/17 06:00 ALT 49 U/L (7-56) 10/20/17 06:00 Alkaline Phosphatase 71 U/L (38-126) 10/20/17 06:00 Lactate Dehydrogenase 248 U/L (333-699) L 10/18/17 17:00 Total Creatine Kinase 64 U/L (35-230) 10/18/17 17:00 Troponin I 0.04 ng/mL D 10/19/17 09:58 NT-Pro-B Natriuret Pep < 11.1 pg/mL (0-450) 10/18/17 17:00 Total Protein 8.1 g/dL (5.8-8.3) 10/20/17 06:00 Albumin 4.5 g/dL (3.0-4.8) 10/20/17 06:00 Globulin 3.6 gm/dL 10/20/17 06:00 Albumin/Globulin Ratio 1.3 (1.1-1.8) 10/20/17 06:00 Lipase 85 U/L (23-300) 10/18/17 17:00 Procalcitonin 0.13 NG/ML (0.19-0.49) L 10/19/17 09:58 Urine Color Yellow (YELLOW) 10/18/17 17:25 Urine Appearance Clear (CLEAR) 10/18/17 17:25 Urine pH 6.0 (4.7-8.0) 10/18/17 17:25 Ur Specific [place] 1.020 (1.005-1.035) 10/18/17 17:25 Urine Protein Trace mg/dL (<30 mg/dL) H 10/18/17 17:25 Urine Glucose (UA) >=1000 mg/dL (NEGATIVE) 10/18/17 17:25 Urine Ketones 15 mg/dL (NEGATIVE) H 10/18/17 17:25 Urine Blood Negative (NEGATIVE) 10/18/17 17:25 Urine Nitrate Negative (NEGATIVE) 10/18/17 17:25 Urine Bilirubin Negative (NEGATIVE) 10/18/17 17:25 Urine Urobilinogen 0.2 E.U./dL (<1 E.U./dL) 10/18/17 17:25 Ur Leukocyte Esterase Negative Yuan/uL (NEGATIVE) 10/18/17 17:25 Urine RBC Negative /hpf (0-2) 10/18/17 17:25 Urine WBC Negative /hpf (0-6) 10/18/17 17:25 Ur Epithelial Cells 0 - 2 /hpf (0-5) 10/18/17 17:25 Influenza Typ A,B (EIA) Negative for flu a/b (NEGATIVE) 10/18/17 21:45 - Hospital Course Hospital Course: This is a 67 yo F with PMH of Asthma (now only on rescue inhaler) and DM-II on insulin who presented to [facility] with 1 week of cough productive of green sputum, worsening shortness of breath, and recently begun chest pain and left arm pain. She was found to have subsegmental PEs. She was initially started on heparin drip, but was found to be eligible for Eliquis, so she was transitioned to Eliquis. She was was also started on antibiotics for empiric coverage of possible CAP vs atypical PNA. She was instructed to take the 10mg BID Eliquis for 5 more days (for total of 7 days), followed by the 5mg BID Eliquis for at least 3 months, possible more as per Hematology. She was instructed to follow up at the [facility] within 1 week, and with a Senior Solutions Architect within 1 month. She was instructed to resume her home insulin, to wait until tomorrow to start her Metformin due to recent contrast dye study, and to take all her new medications as prescribed. Also discussed with her son via telephone. Discharge instructions in Japanese were left in pt's chart for discharge. Son was instructed to ensure she follows up at the clinic and with the adult education instructor. Both expressed understanding and agreement. Patient was then discharged. Patient seen, reviewed, and examined with attending, Dr. Courtney. Discharge Exam - Additional Findings Additional findings: - Constitutional Appears: Non-toxic, No Acute Distress - Head Exam Head Exam: ATRAUMATIC, NORMAL INSPECTION, NORMOCEPHALIC - Eye Exam Eye Exam: EOMI, Normal appearance. absent: Conjunctival injection, Scleral icterus Pupil Exam: absent: Irregular, Unequal - ENT Exam ENT Exam: Mucous Membranes Moist - Neck Exam Neck Exam: Full ROM, Normal Inspection - Respiratory Exam Respiratory Exam: Clear to Ausculation Bilateral, Rhonchi (faint bibasilar ronchi, otherwise CTAB), NORMAL BREATHING PATTERN. absent: Accessory Muscle Use , Chest Wall Tenderness, Decreased Breath Sounds, Prolonged Expiratory Phase, Rales, Wheezes, Respiratory Distress, Stridor - Cardiovascular Exam Cardiovascular Exam: REGULAR RHYTHM, RRR, +S1, +S2. absent: Bradycardia, Tachycardia, Irregular Rhythm, JVD, +S4 - GI/Abdominal Exam GI & Abdominal Exam: Soft, Normal Bowel Sounds. absent: Distended, Firm, Rigid , Tenderness, Diminished Bowel Sounds, Hyperactive Bowel Sounds, Hypoactive Bowel Sounds - Extremities Exam Extremities Exam: Full ROM, Normal Capillary Refill, Normal Inspection. absent : Calf Tenderness, Joint Swelling, Pedal Edema, Tenderness - Neurological Exam awake and alert, moving all extremities spontaneously, following all commands appropriately motor grossly intact and equal bilaterally - Psychiatric Exam Psychiatric exam: Normal Affect, Normal Mood - Skin Skin Exam: Dry, Intact, Normal Color, Warm Discharge Plan - Discharge Medications Prescriptions: Apixaban [Eliquis] 10 mg PO BID #10 tab Apixaban [Eliquis] 5 mg PO BID #60 tab predniSONE [Prednisone] See Taper PO DAILY #5 tab Azithromycin [Zithromax] 500 mg PO DAILY #5 tablet - Follow Up Plan Condition: FAIR Disposition: HOME/ ROUTINE Instructions: Asthma, Adult (DC), Pulmonary Embolism (Blood Clot in the Lungs) (DC), Atypical Pneumonia (Mycoplasma and Viral) (DC) Additional Instructions: You have been given a card for the hospital clinic. You can follow up at the clinic after discharge, even if you don't have insurance. Please schedule a follow up appointment within 1 week of your discharge from the hospital. You have also been given a referral for a blood doctor to follow up with. Instructions for your new medications: Eliquis 10mg Starting tomorrow (October 21), take 1 tablet by mouth twice per day. This is for 5 days. Eliquis 5mg: After completing 5 days of Eliquis 10mg twice a day, you need to start taking the 5mg dose twice a day. You have a supply for 30 days, and 2 refills. You will need to take the medication for at least 3 months, but possibly more if the Blood Doctor you follow up with recommends additional treatment. Azithromycin 500mg: This is an antibiotic for your cough. Start taking this tomorrow (October 21), once a day, for 5 days. DO NOT stop taking your antibiotic if you start feeling better, make sure to complete the entire treatment. Take the antibiotic with at least some food; taking it on an empty stomach can cause nausea and abdominal pain. Prednisone taper: This a steroid taper to wean you off the steroids you were started on when you were admitted. Starting tomorrow (October 21), you will take once per day. The doses are as follows: October 21: 40mg, October 22: 30mg, October 23: 20mg, October 24: 10mg. Please resume your insulin as previously prescribed. DO NOT take your metformin today (October 20); wait until tomorrow (October 21) to resume your metformin, to prevent any interaction between the metformin and the contrast dye you received for your CT scan. A copy of these instructions in Japanese has been placed in your chart, and will be given to you on discharge. Referrals: [facility] at [facility] [Outside] Deacon Almanza MD [Staff Provider] - <Seth Courtney - Last Filed: 10/22/17 14:42> Provider - Provider Date of Admission: 10/19/17 11:40 Attending physician: Luiza Diggs MD Hospital Course - Lab Results Lab Results: Most Recent Lab Values WBC 13.8 10^3/ul (4.5-11.0) H 10/20/17 06:00 RBC 4.52 10^6/uL (3.5-6.1) 10/20/17 06:00 Hgb 13.6 g/dL (12.0-16.0) 10/20/17 06:00 Hct 40.9 % (36.0-48.0) 10/20/17 06:00 MCV 90.5 fl (80.0-105.0) 10/20/17 06:00 MCH 30.1 pg (25.0-35.0) 10/20/17 06:00 MCHC 33.3 g/dl (31.0-37.0) 10/20/17 06:00 RDW 12.7 % (11.5-14.5) 10/20/17 06:00 Plt Count 301 10^3/uL (120.0-450.0) 10/20/17 06:00 MPV 9.4 fl (7.0-11.0) 10/20/17 06:00 Gran % 82.4 % (50.0-68.0) H 10/20/17 06:00 Lymph % (Auto) 14.1 % (22.0-35.0) L 10/20/17 06:00 Richardson % (Auto) 3.4 % (1.0-6.0) 10/20/17 06:00 Eos % (Auto) 0.0 % (1.5-5.0) L 10/20/17 06:00 Baso % (Auto) 0.1 % (0.0-3.0) 10/20/17 06:00 Gran # 11.35 (1.4-6.5) H 10/20/17 06:00 Lymph # (Auto) 1.9 (1.2-3.4) 10/20/17 06:00 Richardson # (Auto) 0.5 (0.1-0.6) 10/20/17 06:00 Eos # (Auto) 0.0 (0.0-0.7) 10/20/17 06:00 Baso # (Auto) 0.01 K/mm3 (0.0-2.0) 10/20/17 06:00 PT 12.4 SECONDS (9.4-12.5) 10/19/17 02:30 INR 1.09 (0.93-1.08) H 10/19/17 02:30 APTT 81.0 Seconds (25.1-36.5) H 10/19/17 09:58 Sodium 141 mmol/L (132-148) 10/20/17 06:00 Potassium 4.5 mmol/L (3.6-5.0) 10/20/17 06:00 Chloride 101 mmol/L (98-107) 10/20/17 06:00 Carbon Dioxide 24 mmol/L (21-33) 10/20/17 06:00 Anion Gap 21 (10-20) H 10/20/17 06:00 BUN 24 mg/dL (7-21) H 10/20/17 06:00 Creatinine 0.7 mg/dl (0.7-1.2) 10/20/17 06:00 Est GFR ( Amer) > 60 10/20/17 06:00 Est GFR (Non-Af Amer) > 60 10/20/17 06:00 POC Glucose (mg/dL) 382 mg/dL (65-110) H 10/20/17 16:15 Random Glucose 384 mg/dL (70-110) H* 10/20/17 06:00 Calcium 9.8 mg/dL (8.4-10.5) 10/20/17 06:00 Phosphorus 6.4 mg/dL (2.5-4.5) H 10/20/17 06:00 Magnesium 2.3 mg/dL (1.7-2.2) H 10/20/17 06:00 Total Bilirubin 0.4 mg/dL (0.2-1.3) 10/20/17 06:00 AST 38 U/L (14-36) H 10/20/17 06:00 ALT 49 U/L (7-56) 10/20/17 06:00 Alkaline Phosphatase 71 U/L (38-126) 10/20/17 06:00 Lactate Dehydrogenase 248 U/L (333-699) L 10/18/17 17:00 Total Creatine Kinase 64 U/L (35-230) 10/18/17 17:00 Troponin I 0.04 ng/mL D 10/19/17 09:58 NT-Pro-B Natriuret Pep < 11.1 pg/mL (0-450) 10/18/17 17:00 Total Protein 8.1 g/dL (5.8-8.3) 10/20/17 06:00 Albumin 4.5 g/dL (3.0-4.8) 10/20/17 06:00 Globulin 3.6 gm/dL 10/20/17 06:00 Albumin/Globulin Ratio 1.3 (1.1-1.8) 10/20/17 06:00 Lipase 85 U/L (23-300) 10/18/17 17:00 Procalcitonin 0.13 NG/ML (0.19-0.49) L 10/19/17 09:58 Urine Color Yellow (YELLOW) 10/18/17 17:25 Urine Appearance Clear (CLEAR) 10/18/17 17:25 Urine pH 6.0 (4.7-8.0) 10/18/17 17:25 Ur Specific [place] 1.020 (1.005-1.035) 10/18/17 17:25 Urine Protein Trace mg/dL (<30 mg/dL) H 10/18/17 17:25 Urine Glucose (UA) >=1000 mg/dL (NEGATIVE) 10/18/17 17:25 Urine Ketones 15 mg/dL (NEGATIVE) H 10/18/17 17:25 Urine Blood Negative (NEGATIVE) 10/18/17 17:25 Urine Nitrate Negative (NEGATIVE) 10/18/17 17:25 Urine Bilirubin Negative (NEGATIVE) 10/18/17 17:25 Urine Urobilinogen 0.2 E.U./dL (<1 E.U./dL) 10/18/17 17:25 Ur Leukocyte Esterase Negative Yuan/uL (NEGATIVE) 10/18/17 17:25 Urine RBC Negative /hpf (0-2) 10/18/17 17:25 Urine WBC Negative /hpf (0-6) 10/18/17 17:25 Ur Epithelial Cells 0 - 2 /hpf (0-5) 10/18/17 17:25 [id number] Ab <9 LORETTA (<=20) 10/19/17 09:58 Beta-2 GPI IgG Ab <9 SGU (<=20) 10/19/17 09:58 Beta-2 GPI IgM Ab <9 SMU (<=20) 10/19/17 09:58 Phosphatidylserine IgG <10 U/mL (<10) 10/19/17 09:58 Phosphatidylserine IgA <20 U/mL (<20) 10/19/17 09:58 Phosphatidylserine IgM <25 U/mL (<25) 10/19/17 09:58 Anti-Phospholipid Intrp see note 10/19/17 09:58 Anti-Cardiolipin IgG Ab <14 GPL (<=14) 10/19/17 09:58 Anti-Cardiolipin IgA Ab <11 APL (<=11) 10/19/17 09:58 Anti-Cardiolipin IgM Ab <12 MPL (<=12) 10/19/17 09:58 Influenza Typ A,B (EIA) Negative for flu a/b (NEGATIVE) 10/18/17 21:45 Attending/Attestation - Attestation I have personally seen and examined this patient.: Yes I have fully participated in the care of the patient.: Yes I have reviewed all pertinent clinical information, including history, physical exam and plan: Yes Notes (Text): 10/22/17 14:40 attending note; Patient seen and examined with resident. Patient is a 67-year-old Japanese speaking female admitted with subsegmental pulmonary embolism. Currently with stable respiratory status. No tachycardia or hypoxia noted. Ambulating without any difficulty. Doppler is negative for DVT. Echocardiogram without any right ventricular strain. Eliquis was delivered to the bed side. Patient will be referred to oncology as outpatient. patient will follow-up with [facility] clinic upon discharge. 10/22/17 14:42
[2017-10-20] MEDS: Insulin Lispro (HUMAlog) HIGH Coverage SC SCH ×2 (12:03→17:19)
[2017-10-20 18:04] VITALS: BP 150/81; PULSE 94; RESP 20; TEMP 98.4; O2SAT 95
--- NOTE | 2017-10-20 20:27 | CARD ---
APPROVED REPORT EXAM: Two-dimensional and M-mode echocardiogram with Doppler and color Doppler. INDICATION 2D DIMENSIONS IVSd1.1 (0.7-1.1cm)LVDd4.8 (3.9-5.9cm) PWd1.1 (0.7-1.1cm)LVDs3.1 (2.5-4.0cm) FS (%) 36.1 %LVEF (%)65.7 (>50%) M-Mode DIMENSIONS Left Atrium (MM)3.40 (2.5-4.0cm)Aortic Root3.20 (2.2-3.7cm) Aortic Cusp Exc.1.90 (1.5-2.0cm) Aortic Valve AoV Peak Vbupcawo598.0cm/Pan Peak GR.11mmHg Mitral Valve MV E Onlufdqr21.5cm/sMV A Gedqblyc860.0cm/sE/A ratio0.7 TDI Lateral E' Peak V10.20cm/sMedial E' Peak V5.75cm/sE/Lateral E'7.2 E/Medial E'12.8 Tricuspid Valve TR Peak [id number]/sRAP [id number] Peak Gr.21mmHg [id number] LEFT VENTRICLE The left ventricle is normal size. There is borderline to mild concentric left ventricular hypertrophy. The left ventricular function is normal.EF-60-65% There is normal LV segmental wall motion. Transmitral Doppler flow pattern is Grade III-reversible restrictive diastolic dysfunction. No left ventricle thrombus noted on this study. There is no ventricular septal defect visualized. There is no left ventricular aneurysm. There is no mass noted in the left ventricle. RIGHT VENTRICLE The right ventricle is normal size. There is normal right ventricular wall thickness. The right ventricular systolic function is normal. ATRIA The left atrium size is normal. The right atrium size is normal. The interatrial septum is intact with no evidence for an atrial septal defect. AORTIC VALVE The aortic valve is normal in structure. There is trace aortic regurgitation. There is no aortic valvular stenosis. There is no aortic valvular vegetation. MITRAL VALVE The mitral valve is thickened but opens well. Mitral regurgitation is mild to moderate. There is no mitral valve stenosis. There is no evidence of mitral valve prolapse. TRICUSPID VALVE The tricuspid valve leaflets are thickened , but open well. There is mild tricuspid regurgitation.RVSP-31 mm of Hg There is no tricuspid valve stenosis. There is no tricuspid valve prolapse or vegetation. PULMONIC VALVE The pulmonary valve is normal in structure. There is trace pulmonic valvular regurgitation. There is no pulmonic valvular stenosis. GREAT VESSELS The aortic root is normal in size. The ascending aorta is normal in size. The pulmonary artery is normal. The IVC is normal in size and collapses >50% with inspiration. PERICARDIAL EFFUSION There is no pleural effusion. There is no pericardial effusion. <Conclusion> The left ventricle is normal size. There is borderline to mild concentric left ventricular hypertrophy. The left ventricular function is normal.EF-60-65% There is trace aortic regurgitation. Mitral regurgitation is mild to moderate. There is mild tricuspid regurgitation.RVSP-31 mm of Hg The IVC is normal in size and collapses >50% with inspiration. There is no pericardial effusion. No thrombus or vegetation noted.
[2017-10-21 21:04] LABS: B2 GLYCOPROTEIN I AB(IGA) <9 SAU (<=20); B2 GLYCOPROTEIN I AB(IGG) <9 SGU (<=20); B2 GLYCOPROTEIN I AB(IGM) <9 SMU (<=20)
[2017-10-21 21:59] LABS: CARDIOLIPIN AB (IGA) <11 APL (<=11); CARDIOLIPIN AB (IGG) <14 GPL (<=14); CARDIOLIPIN AB (IGM) <12 MPL (<=12)
[2017-10-21 23:39] LABS: PHOSPHATIDYLSERINE AB IGA <20 U/mL (<20); PHOSPHATIDYLSERINE AB IGG <10 U/mL (<10); PHOSPHATIDYLSERINE AB IGM <25 U/mL (<25)
== END 2017-10-20 18:50 | disposition home or self-care (01) | DRG 175 ==
LOC: ED 14:23 → UNDOADMOB 22:19 → ERH 22:19 → 2RNO 10-19 02:03 → INTOOBSV 10-19 11:40 → OBSVTOIN 10-19 11:40 → UNDODISIN 10-20 18:50
PROVIDERS: ADMIT Hospitalist; ATTEND Hospitalist
DX: I26.99 Other pulmonary embolism without acute cor pulmonale (principal); J18.9 Pneumonia, unspecified organism; J45.901 Unspecified asthma with (acute) exacerbation; J98.11 Atelectasis; E11.65 Type 2 diabetes mellitus with hyperglycemia; Z79.4 Long term (current) use of insulin; I51.7 Cardiomegaly; I70.0 Atherosclerosis of aorta; K44.9 Diaphragmatic hernia without obstruction or gangrene; K76.0 Fatty (change of) liver, not elsewhere classified; T38.0X5A Adverse effect of glucocorticoids and synthetic analogues, initial encounter

== ENCOUNTER 2018-09-21 07:57 | Outpatient (CLI) | payer OTHER | END 2018-09-21 07:58 | disposition home or self-care (01) | LOC: LAB 07:57 ==

== ENCOUNTER 2018-09-25 10:23 | Outpatient (CLI) | payer OTHER | END 2018-09-25 10:24 | disposition home or self-care (01) | LOC: CARDIO 10:23 ==

== ENCOUNTER 2018-09-25 11:26 | Emergency (ER) | payer OTHER ==
[2018-09-25 11:30] VITALS: BMI 33.3
[2018-09-25] MEDS ORDERED: Albuterol-Ipratrop 3 mg / 0.5 (3 ml) UD IH STA ×2 (11:51)
--- NOTE | 2018-09-25 11:58 | ED PDOC ---
Arrival/HPI - General Chief Complaint: Cough, Cold, Congestion Time Seen by Provider: 09/25/18 11:29 Historian: Family (daughter) - History of Present Illness Narrative History of Present Illness (Text): 09/25/18 11:50 68 F with pmh of asthma, diabetes and past PE(on Eliquis) presents with daughter with cc of cough w/ green sputum x5 days. Per daughter, patient also complains of sore throat. Patient recalls being complaint with Eliquis for the last year. Patient denies any fevers, chills, headache, dizziness, chest pain, shortness of breath, dyspnea on exertion, diaphoresis, abdominal pain, nausea, vomiting, diarrhea, back pain, neck pain, or any other complaint. Time/Duration: < week Symptom Onset: Gradual Symptom Course: Unchanged Activities at Onset: Light Context: Home Past Medical History - Provider Review Nursing Documentation Reviewed: Yes - Infectious Disease Hx of Infectious Diseases: None - Tetanus Immunization Tetanus Immunization: Unknown - Cardiac Hx Cardiac Disorders: No - Pulmonary Hx Respiratory Disorders: Yes Hx Asthma: Yes - Neurological Hx Neurological Disorder: No - HEENT Hx HEENT Disorder: No - Renal Hx Renal Disorder: No - Endocrine/Metabolic Hx Endocrine Disorders: Yes Hx Diabetes Mellitus Type 2: Yes - Hematological/Oncological Hx Blood Disorders: No - Integumentary Hx Dermatological Disorder: No - Musculoskeletal/Rheumatological Hx Musculoskeletal Disorders: No - Gastrointestinal Hx Gastrointestinal Disorders: No - Genitourinary/Gynecological Hx Genitourinary Disorders: No - Psychiatric Hx Psychophysiologic Disorder: No Hx Substance Use: No Family/Social History - Physician Review Nursing Documentation Reviewed: Yes Family/Social History: Unknown Family HX Smoking Status: Never Smoked Hx Alcohol Use: No Hx Substance Use: No Allergies/Home Meds Allergies/Adverse Reactions: Allergies No Known Allergies Allergy (Verified 09/25/18 11:31) Home Medications: Home Meds Medication Instructions Recorded Confirmed Insulin Aspart, Recombinant 40 unit SC DAILY 10/18/17 09/25/18 [Novolog] Insulin Glargine, Recombina 22 unit SC DAILY 10/18/17 09/25/18 [Lantus] Metformin HCl [Glucophage] 1,000 mg PO TID 10/18/17 09/25/18 Review of Systems - Physician Review All systems were reviewed & negative as marked: Yes - Review of Systems Constitutional: Normal. absent: Fevers Eyes: Normal ENT: Sore Throat. absent: Rhinorrhea Respiratory: Cough, Sputum (greenish). absent: SOB, Wheezing Cardiovascular: Normal Gastrointestinal: Normal Genitourinary Female: Normal Musculoskeletal: Normal Skin: Normal Neurological: Normal Endocrine: Normal Hemo/Lymphatic: Normal Psychiatric: Normal Physical Exam Vital Signs Reviewed: Yes Vital Signs Temp Pulse Resp BP Pulse Ox 09/25/18 11:33 99.3 F 86 18 143/80 96 Temperature: Afebrile Blood Pressure: Normal Pulse: Regular Respiratory Rate: Normal Appearance: Positive for: Well-Appearing, Non-Toxic, Comfortable Pain Distress: Mild Mental Status: Positive for: Alert and Oriented X 3 - Systems Exam Head: Present: Atraumatic, Normocephalic Pupils: Present: PERRL Extroacular Muscles: Present: EOMI Conjunctiva: Present: Normal Mouth: Present: Moist Mucous Membranes Pharnyx: Present: Other (pharyngeal edema) Neck: Present: Normal Range of Motion Respiratory/Chest: Present: Wheezes (scattered), Decreased Breath Sounds (symterically). No: Respiratory Distress, Accessory Muscle Use Cardiovascular: Present: Regular Rate and Rhythm, Normal S1, S2. No: Murmurs Abdomen: No: Tenderness, Distention, Peritoneal Signs Back: Present: Normal Inspection Upper Extremity: Present: Normal Inspection. No: Cyanosis, Edema Lower Extremity: Present: Normal Inspection. No: Edema Neurological: Present: GCS=15, Speech Normal Skin: Present: Warm, Dry, Normal Color. No: Rashes Psychiatric: Present: Alert, Oriented x 3, Normal Insight, Normal Concentration Medical Decision Making ED Course and Treatment: mild ashtma/r/o pna- compliant with eliquis. pe less likely as pt not hypoxic tachycaridic no cp. 09/25/18 12:01 Impression: 68 F presents with daughter with cc of cough w/ green sputum x5 days Plan: -- CXR -- Albuterol -- Prednisone -- Rapid Strep group A Antigen -- Reassess and disposition Prior Visits: Notes and results from previous visits were reviewed. Progress Notes: 09/25/18 13:05 cxr neg. strep flu neg. pt states feeling improved. satting 99% ra. speaing full sentences in no resp distress. smiling. asking for dc. return precations advised. - Scribe Statement The provider has reviewed the documentation as recorded by the Dang Armendariz All medical record entries made by the Stephanieibadam were at my direction and personally dictated by me. I have reviewed the chart and agree that the record accurately reflects my personal performance of the history, physical exam, medical decision making, and the department course for this patient. I have also personally directed, reviewed, and agree with the discharge instructions and disposition. Disposition/Present on Arrival - Present on Arrival Any Indicators Present on Arrival: No History of DVT/PE: No History of Uncontrolled Diabetes: No Urinary Catheter: No History of Decub. Ulcer: No History Surgical Site Infection Following: None - Disposition Have Diagnosis and Disposition been Completed?: Yes Diagnosis: Viral syndrome Disposition: HOME/ ROUTINE Disposition Time: 12:00 Condition: STABLE Discharge Instructions (ExitCare): Asthma, Adult (DC), Viral Syndrome (DC) Additional Instructions: return to er with worsening symptoms or concerns. ramya collins in clinic. Prescriptions: Albuterol 0.083% [Albuterol 0.083% Inhal Lali (2.5 mg/3 ml) UD] 2.5 mg IH Q4 PRN #1 neb PRN Reason: Wheezing Nebulizer [Aeroeclipse II] 1 each MC Q4 PRN #1 each PRN Reason: Wheezing Nebulizer Accessories [Adult Aerosol Mask] 1 each MC Q4 PRN #1 each PRN Reason: Wheezing Oseltamivir Phosphate [Tamiflu] 75 mg PO BID #10 capsule Prednisone 50 mg PO DAILY #5 tablet Referrals: Geetha Jane MD [Primary Care Provider] - Follow up with primary Forms: [employer] (Turkmen)
[2018-09-25 12:18] LABS: INFLUENZA A B NEGATIVE FOR FLU A/B (NEGATIVE)
[2018-09-25 12:25] VITALS: PULSE 82; RESP 16
--- NOTE | 2018-09-25 12:52 | RAD ---
Date of service: 09/25/2018 HISTORY: cough COMPARISON: 10/18/2017 TECHNIQUE: Chest PA and lateral views FINDINGS: LUNGS: No active pulmonary disease. PLEURA: No significant pleural effusion identified. No pneumothorax apparent. CARDIOVASCULAR: Aortic calcification Normal cardiac size. No pulmonary vascular congestion. OSSEOUS STRUCTURES: No significant abnormalities. VISUALIZED UPPER ABDOMEN: Normal. OTHER FINDINGS: None. IMPRESSION: No active disease.
[2018-09-25 13:13] VITALS: BP 130/62; TEMP 98.9; O2SAT 99
== END 2018-09-25 13:12 | disposition home or self-care (01) ==
LOC: ED 11:26
DX: B34.9 Viral infection, unspecified (principal); E11.9 Type 2 diabetes mellitus without complications; Z86.711 Personal history of pulmonary embolism; Z79.01 Long term (current) use of anticoagulants

== ENCOUNTER 2018-09-30 08:16 | Outpatient (CLI) | payer OTHER | END 2018-09-30 08:17 | disposition home or self-care (01) | LOC: RAD 08:16 | DX: R19.8 Other specified symptoms and signs involving the digestive system and abdomen (principal) ==

== ENCOUNTER 2018-10-15 09:11 | Outpatient (CLI) | payer OTHER | END 2018-10-15 09:12 | disposition home or self-care (01) | LOC: PULMO 09:11 ==

== ENCOUNTER 2018-10-17 12:22 | Outpatient (CLI) | payer OTHER | END 2018-10-17 12:23 | disposition home or self-care (01) | LOC: LAB 12:22 | DX: E11.29 Type 2 diabetes mellitus with other diabetic kidney complication (principal) ==